=== PATIENT | male | born 1955 | race Two or more races ===

== ENCOUNTER 2020-09-30 11:00 | Emergency (ER) | payer OTHER ==
[~2020-09-30] VITALS: Ht 177.8 cm; Wt 77.1 kg
[2020-09-30] MEDS ORDERED: SILENOR3 MG PO (11:26)
[2020-09-30] MEDS ORDERED: NEXIUM40 M1 PO (11:26)
[2020-09-30] MEDS ORDERED: NORVASC10 MG PO (11:26)
[2020-09-30] MEDS ORDERED: PEPCID AC20 MG PO (11:26)
== END 2020-09-30 13:49 | disposition home or self-care (01) ==
LOC: ER 11:00
DX: G44.89 Other headache syndrome (principal)

== ENCOUNTER 2021-10-02 11:22 | Emergency (ER) | payer OTHER ==
[~2021-10-02] VITALS: Ht 177.8 cm; Wt 79.4 kg
[~2021-10-02 11:22] MED LIST: NEXIUM40 M1 PO; NORVASC10 MG PO; PEPCID AC20 MG PO; SILENOR3 MG PO
[2021-10-02] MEDS ORDERED: GLUMETZA1000 MG (12:23)
[2021-10-02] MEDS ORDERED: COZAAR50 MG PO (12:23)
== END 2021-10-02 17:05 | disposition home or self-care (01) ==
LOC: ER 11:22
DX: U07.1 COVID-19 (principal); I10 Essential (primary) hypertension; E11.9 Type 2 diabetes mellitus without complications; Z79.84 Long term (current) use of oral hypoglycemic drugs